=== PATIENT | female | born 1950 | race Caucasian/White ===

== ENCOUNTER → 2018-08-19 14:16 | Outpatient (CLI) | payer MEDICARE, OTHER, SELFPAY ==
[2018-08-19 14:42] LABS: Add Manual Diff / Slide Review NO; Basophils Absolute Auto 0 /uL (0-100); Basophils Percent Auto 0.4 % (0-2); Eosinophils Absolute Auto 100 /uL (0-450); Eosinophils Percent Auto 1.9 % (2-4); Hematocrit 40.8 % (36-46); Hemoglobin 13.4 g/dL (12.0-16.0); Lymphocytes Absolute Auto 1600 /uL (1100-4500); Lymphocytes Percent Auto 28.2 % (25-40); Mean Corpuscular Hemoglobin 28.7 PG (26-34); Mean Corpuscular Volume 86.9 fL (80-100); Monocytes Absolute Auto 500 /uL (0-900); Monocytes Percent Auto 9.7 % (3-14); Neutrophils Absolute Auto 3400 /uL (1500-7000); Neutrophils Percent Auto 59.8 % (50-75); Platelet Count 247 X10^3/uL (150-400); Red Blood Cell Count 4.69 X10^6/uL (4.0-5.2); White Blood Cell Count 5.6 X10^3/uL (4.5-11.0)
[2018-08-19 15:02] LABS: Alanine Aminotransferase 36 IU/L (9-52); Albumin 4.5 g/dL (3.5-5.0); Albumin Globulin Ratio 1.7 (1.0-2.8); Alkaline Phosphatase 61 U/L (38-126); Aspartate Aminotransferase 26 IU/L (14-36); Bilirubin Total 0.3 mg/dL (0.2-1.3); Blood Urea Nitrogen 18 mg/dL (7-17); Calcium 9.4 mg/dL (8.4-10.2); Carbon Dioxide 26 mmol/L (22-32); Chloride 103 mmol/L (98-107); Estimated Glomerular Filt Rate > 60.0 mL/min (>60); Globulin 2.6 g/dL (1.7-4.1); Glucose 80 mg/dL (80-110); HEMOLYSIS < 15 (0-50); Potassium 4.1 mmol/L (3.4-5.1); Sodium 137 mmol/L (137-145); Total Protein 7.1 g/dL (6.3-8.2)
[2018-08-19 15:49] LABS: Free T4, Direct Thyroxine 0.82 ng/dL (0.78-2.19)
[2018-08-19 16:03] LABS: Thyroid Stimulating Hormone 1.66 uIU/mL (0.47-4.68)
== END ==
PROVIDERS: PCP Internal Medicine; Visit Provider Internal Medicine
DX: F33.41 Major depressive disorder, recurrent, in partial remission (principal); G89.29 Other chronic pain; M54.5 Low back pain; Z79.01 Long term (current) use of anticoagulants
CPT/HCPCS: 36415; 80053; 84439; 84443; 85025

== ENCOUNTER 2024-10-31 18:16 | Emergency (ER) | payer MEDICARE, OTHER, SELFPAY ==
[2024-10-31 19:21] VITALS: PULSE 79; RESP 18; TEMP 36.2; O2SAT 96; BMI 33.6
--- NOTE | 2024-10-31 19:42 | DI.US.S_ITS ---
PROCEDURE: US PERIPH VENOUS LOW EXTREM RT INDICATIONS: PAIN TECHNIQUE: Real-time imaging, as well as color and pulse Doppler interrogation, were performed of the lower extremity deep veins from the inguinal ligament to the popliteal fossa, with documentation of the visualized calf veins. COMPARISON: None. FINDINGS: The common femoral, femoral, popliteal, and the visualized calf veins are normally compressible, and free of intraluminal thrombus. Color and pulse Doppler demonstrate normal phasic intraluminal flow. There is normal augmentation response to distal compression maneuver. IMPRESSION: No findings of lower extremity deep venous thrombosis. Dictated by: Cy Wong M.D. on 10/31/2024 at 20:12 Approved by: Cy Wong M.D. on 10/31/2024 at 20:13
[2024-10-31 21:57] VITALS: BP 127/66; PULSE 71; RESP 18; TEMP 36.9; O2SAT 97
--- NOTE | 2024-10-31 23:18 | ED.EXTPRO ---
HPI - Extremity Problem General Chief complaint: Extremity Problem,Nontraumatic Stated complaint: Pain in right leg and has have five dvts Time Seen by Provider: 10/31/24 22:42 Source: patient Mode of arrival: Ambulatory History of Present Illness HPI Narrative: 73-year-old woman with a history of chronic pain on buprenorphine, Lyrica has had extensive spinal surgery with degenerative disc disease and arthritis and has factor 5 Leiden deficiency and is chronically anticoagulated. She has been having more pain down her right leg over the last 1-2 days and is concerned she has blood clot. Comes in for further evaluation. She does not describe any obvious trauma. She states it feels like her leg is almost asleep when she stands up and then improves with walking. Related Data Home Medications ?Medication ?Instructions ?Recorded ?Confirmed multivitamin 1 tab PO DAILY 12/18/17 10/19/18 clobetasol 0.05 % topical cream 1 applictn topical BID 08/19/18 10/19/18 RespirGanoss Dreamstation BIPAP #1 ea 01/26/19 Previous Rx's ?Medication ?Instructions ?Recorded estradiol 10 mcg vaginal tablet 10 mcg vaginal 2XW #8 tabs 03/17/18 (Vagifem) warfarin 5 mg tablet (Coumadin) 5 mg PO .COMPLEX #100 tabs 08/19/18 lidocaine 5 % topical patch 1 patch topical Q12H #30 ea 12/03/18 (Lidoderm) warfarin 5 mg tablet 7.5 mg (1.5 x 5 mg) PO DAILY #60 12/03/18 tabs venlafaxine 75 mg tablet 112.5 mg (1.5 x 75 mg) PO BID #270 12/24/18 tabs bupropion HCl 150 mg 24 hr tablet, 150 mg PO BID #60 tabs 01/24/19 extended release pregabalin 50 mg capsule (Lyrica) 50 mg PO BID #60 caps 01/24/19 oxycodone 5 mg tablet See Rx Instructions .Route 02/14/19 .COMPLEX PRN pain #360 tabs acyclovir 800 mg tablet See Rx Instructions PO SEE 02/15/19 INSTRUCTIONS #60 tabs Allergies Allergy/AdvReac Type Severity Reaction Status Date / Time ciprofloxacin (From CIPRO) Allergy Severe SEVERE CHAPMAN Verified 10/31/24 19:21 daptomycin (DAPTOMYCIN) Allergy Mild RASH Verified 10/31/24 19:21 levofloxacin (LEVOFLOXACIN) Allergy Mild NOT SURE Verified 10/31/24 19:21 vancomycin (VANCOMYCIN) Allergy Mild POSS Verified 10/31/24 19:21 RASH/UNSURE latex (LATEX) Allergy Unknown Verified 10/31/24 19:21 Review of Systems Review of Systems Narrative: Pertinent positive and negative findings as per HPI Patient History Medical History (Updated 10/31/24 @ 23:35 by Jaylene Pierre MD) Rectovaginal fistula DVT (deep venous thrombosis) Grief (07/10/15) Depression (07/10/15) Anxiety (12/09/13) Factor V 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/08/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 (11/01/12) Osteopenia (12/17/10) Hyperlipidemia (12/17/10) Recurrent major depressive disorder, in partial remission (12/17/10) Chronic low back pain Obesity (BMI 30.0-34.9) Opioid dependence, uncomplicated Chronic pain syndrome Surgical History Hx of decompressive lumbar laminectomy History of bladder suspension procedure Status post tubal ligation Status post hysterectomy Status post cholecystectomy History of rectal surgery Family History Brother Family hx of prostate cancer Father Family history of stomach cancer Social History marital status: number of children: 3 household members: none lives independently: Yes caregiver/support person: No housing: house pets and animals: No education level: other (AA Degree) occupational status: other (Retired) Previous occupational history: Clarical work. lidia/m[employer]ism: [employer] leisure activities: music, reading and other (Garden, Sew) Tobacco: How many years used: 0 quit status: quit date established (Never Started) second hand exposure: No alcohol intake: current (Rarely.) substance use type: does not use Exam Initial Vital Signs Initial Vital Signs: Vital Signs Temperature 97.2 F L 10/31/24 19:21 Pulse Rate 79 10/31/24 19:21 Respiratory Rate 18 10/31/24 19:21 Pulse Oximetry 96 10/31/24 19:21 Oxygen Delivery Method Room Air 10/31/24 19:21 General: Alert appropriate in no acute distress Respiratory: Able to speak in full sentences, no obvious respiratory distress Skin: No obvious rashes, warm and dry Neurologic: Grossly intact no obvious asymmetries or abnormalities Psych: appropriate insight and affect, cooperative Extremity: No point tenderness along the lumbar spine or into the buttock. Some minor reproducible pain when compression on the lateral femoral cutaneous nerve on the right side. No significant swelling in the lower external Course Orders Ordered: ED Orders 10/31/24 19:42 US periph venous low extrem rt Stat Vital Signs Vital signs: Vital Signs - 8 hr 10/31/24 19:21 10/31/24 21:57 Temperature 97.2 F L 98.4 F Pulse Rate 79 71 Respiratory Rate 18 18 Blood Pressure 127/66 Pulse Oximetry 96 97 Oxygen Delivery Method Room Air Room Air MDM - Extremity (Nontraumatic) MDM Narrative Medical decision making narrative: 73-year-old woman with acute onset of right leg/upper thigh paresthesia that is intermittent causing pain down into her leg. With a history of factor 5 Leiden deficiency and multiple DVT she is concerned that she has develop another clot. Ultrasound shows no evidence of DVT. I am seeing no evidence of infection, stroke. I suspect that her pain is secondary to acute compression of the lateral femoral cutaneous nerve, meralgia paresthetica. We discussed the anatomy of this and reviewed pictures in real-time. Alternatively, an L1 or L2 radiculopathy could cause this however with the pain going further down toward her knee and calf I am far more suspicious of the meralgia paresthetica. Discussed using lower abdominal compression or support to try and decrease the acute angle over the lateral femoral cutaneous nerve. Talked about making sure when she is sitting down she is holding her tummy up and straightening out the area over the groin. There was no evidence of cellulitis, abscess and no hernia. No indication for hospitalization, questions are answered she is safe for discharge Discharge Plan Departure Patient Disposition: Home Clinical Impression: Meralgia paresthetica of right side Instructions: Nerve Compression Activity Restrictions/Additional Instructions: Thank you for coming in today You do not have a blood clot in your leg, there is no evidence of infection. I do not suspect radicular low back pain at this point but that may be part of your overall pain I do suspect that you have acute compression of the lateral femoral cutaneous nerve on the right side. This is a nerve that crosses over and through the groin, it can be compressed particularly with a bigger tummy to continue pressing down on the area. It often will feel like your leg is asleep when you stand up down the front of your leg and it goes away relatively quickly. When you are sitting, making sure that you are reclining slightly to take any compression from your tummy away from the groin on the right side. Some people have found using an elastic band over your lower abdomen can be helpful. There are ?belly belts? that are specifically made for this and are relatively comfortable. You may find a low back compression device is helpful but maybe a bit to compressing. You are already on all of the right medication to try and minimize pain. Please do follow up with your primary care physician. If this continues, physical therapy is something that may be considered. If you find that you are getting worse or develop any new symptoms, please feel free to return to the emergency department for further evaluation. Prescriptions: No Action lidocaine [Lidoderm] 5 % adhesive patch,medicated 1 patch Topical Q12H Qty: 30 5RF warfarin 5 mg tablet 7.5 mg PO DAILY Qty: 60 6RF Rx Instructions: or as directed by physician venlafaxine 75 mg tablet 112.5 mg PO BID Qty: 270 3RF Lyrica 50 mg capsule 50 mg PO BID Qty: 60 3RF bupropion HCl 150 mg tablet extended release 24 hr 150 mg PO BID Qty: 60 3RF (DME) Respironics Dreamstation BIPAP Qty: 1 Patient Comments: Pressure: IPAP 12 EPAP 4 DME: [facility] Rx Instructions: As directed oxycodone 5 mg tablet See Rx Instructions .ROUTE .COMPLEX PRN (Reason: pain) Qty: 360 0RF Dose Instruction: 1-2 tabs by mouth up to every 4 hours PRN; Rx Instructions: 1-2 tabs by mouth up to every 4 hours PRN; acyclovir 800 mg tablet See Rx Instructions PO SEE INSTRUCTIONS Qty: 60 3RF Dose Instruction: 1/2 tablet by mouth 3-4 times daily; PO SEE INSTRUCTIONS; Rx Instructions: 1/2 tablet by mouth 3-4 times daily; PO SEE INSTRUCTIONS; estradiol [Vagifem] 10 mcg tablet 10 mcg VAG 2XW Qty: 8 6RF clobetasol 0.05 % cream 1 applictn TOP BID Patient Comments: Mixed in w/CeraVe cream for hands warfarin [Coumadin] 5 mg tablet 5 mg PO .COMPLEX Qty: 100 3RF Rx Instructions: 5 mg PO daily; Take 1 tab (5mg) by mouth on Mon, Wed and . Take 1.5 tabs (7.5mg) on the other 4 days or as directed. multivitamin tablet 1 tab PO DAILY Referrals: Sachin Pritchett MD [Primary Care Provider, Internal Medicine] Stand Alone Forms: Patient Portal/API
== END 2024-10-31 23:45 | disposition home or self-care (01) ==
PROVIDERS: Emergency Provider Emergency Medicine; PCP Internal Medicine
DX: G57.11 Meralgia paresthetica, right lower limb (principal); Z79.01 Long term (current) use of anticoagulants
CPT/HCPCS: 93971; 99281; 99283